=== PATIENT | male | born 1945 | race Caucasian/White ===

== ENCOUNTER → 2016-12-13 | Outpatient (CLI) | payer OTHER, MEDICARE ==
--- NOTE | 2016-12-13 09:58 | DI ---
DUPLEX COLOR DOPPLER CAROTID ULTRASOUND, 12/13/2016 8:42 AM: Clinical History: Carotid artery stenosis. Previous Exam: None at this facility. Technique: 2D real time imaging is supplemented with duplex color doppler ultrasound imaging. RIGHT CAROTID ARTERY: 2D real time imaging of the right carotid system shows a normal appearance of the right common caroti d artery. Small calcified plaques are present in the carotid bulb and at the origins of the internal and external carotid arteries. Peak systolic velocities through the right common carotid, the externa l carotid, and the internal carotid are 107 cm/s, 105 cm/s, and 71 cm/s, respectively. All values cor respond to diameter stenoses of 0-49%. LEFT CAROTID ARTERY: 2D real time imaging of the left carotid system shows a normal appearing left common carotid artery w ith a small noncalcified plaque in the carotid bulb. No plaque disease is seen in the left internal o r external carotid arteries. Peak systolic velocities through the left common carotid, the external c arotid, and the internal carotid are 149 cm/s, 101 cm/s, and 79 cm/s, respectively. The value for the left common carotid artery corresponds to a diameter stenosis between 50-74%, but closer to 50%. The values for the left internal and external carotid arteries correspond to diameter stenoses of 0-49%. VERTEBRAL ARTERIES: There is antegrade flow through both vertebral arteries Cardiac rhythm is regular. Peak systolic [place] through the visualized portions of the right and left vertebral arteries are 48 cm/s and 54 cm /s, respectively. Both values correspond to diameter stenoses of 0-49%. Readin. There is no hemodynamically significant stenosis of either carotid system. 2. There is antegrade flow in both vertebral arteries. Cardiac rhythm is regular.
--- NOTE | 2016-12-13 09:58 | DI ---
PA /LATERAL CHEST X-RAY, 12/13/2016 9:23 AM : Clinical History: History of a solitary pulmonary nodule. Previous Exam: None at this facility. There is no acute soft tissue or bony abnormality. Heart size is normal. Lungs are clear. Mediastinal structures are normal. There are no pulmonary nodules. Reading: Normal chest x-ray. No pulmonary nodule is identified. We do not have any prior films for comparison.
== END ==
LOC: US 08:20
PROVIDERS: ATTEND Internal Medicine
DX: I65.22 Occlusion and stenosis of left carotid artery (principal); Z87.09 Personal history of other diseases of the respiratory system
CPT/HCPCS: 71020; 93880